=== PATIENT | female | born 1975 | race Caucasian/White ===

== ENCOUNTER 2017-07-17 16:03 | Emergency (ER) | payer OTHER ==
[2017-07-17 16:27] VITALS: BP 167/99; PULSE 99; RESP 18; TEMP 97.9
--- NOTE | 2017-07-17 16:32 | XR ---
EXAMINATION TYPE: XR ankle complete LT DATE OF EXAM: 07/17/2017 CLINICAL HISTORY: Pain from fall injury. TECHNIQUE: Frontal, lateral and oblique images of the left ankle are obtained. COMPARISON: None. FINDINGS: There is mild to moderate soft tissue swelling over the lateral malleolus. There are 2 tin y curvilinear fragment suspicious for avulsion type fractures. Medial malleolus intact. Ankle mortise symmetry is preserved. IMPRESSION: There are acute avulsion type fractures with associated soft tissue swelling from the la teral malleolus. (Initial encounter close type post traumatic fracture)
--- NOTE | 2017-07-17 16:41 | ED ---
General Adult HPI - General Chief complaint: Extremity Injury, Lower Stated complaint: Fall-Ankle Injury Time Seen by Provider: 07/17/17 16:11 Source: patient, RN notes reviewed Mode of arrival: ambulatory Limitations: no limitations - History of Present Illness Initial comments: 42-year-old female presents to the emergency room chief complaint of left ankle pain. Patient uses her ankle last night she continued pain and swelling to the ankle. She states that she can ambulate and move around she does have some discomfort with push pulling. Patient states there is no head injury or any other complaints at this time.Patient denies any recent fever, chills, shortness of breath, chest pain, back pain, abdominal pain, nausea vomiting, numbness or tingling, dysuria or hematuria, constipation or diarrhea, headaches or visual changes, or any other current symptoms. - Related Data Home Medications Medication Instructions Recorded Confirmed Losartan Potassium 50 mg PO DAILY 07/17/17 07/17/17 Allergies Allergy/AdvReac Type Severity Reaction Status Date / Time No Known Allergies Allergy Verified 07/17/17 16:33 Review of Systems ROS Statement: Those systems with pertinent positive or pertinent negative responses have been documented in the HPI. ROS Other: All systems not noted in ROS Statement are negative. Past Medical History Past Medical History: Hypertension History of Any Multi-Drug Resistant Organisms: None Reported Past Surgical History: No Surgical Hx Reported Past Psychological History: No Psychological Hx Reported Smoking Status: Current some day smoker Past Alcohol Use History: Occasional Past Drug Use History: None Reported General Exam - General Exam Comments Initial Comments: General: The patient is awake and alert, in no distress, and does not appear acutely ill. Neck: The neck is supple, there is no tenderness. Cardiovascular: There is a regular rate and rhythm. No murmur, rub or gallop is appreciated. Respiratory: Lungs are clear to auscultation, respirations are non-labored, breath sounds are equal. No wheezes, stridor, rales, or rhonchi. Musculoskeletal: Sensation intact with 2+ pulses. Left flexion. Frontal motion of left knee and left ankle. No proximal tib-fib tenderness. Tenderness medial malleolus process of the left ankle. Some swelling over the lateral malleolus. Full range of motion of left foot. Neurological: CN II-XII intact, There are no obvious motor or sensory deficits. Coordination appears grossly intact. Speech is normal. Skin: Skin is warm and dry and no rashes or lesions are noted. Psychiatric: Normal mood and affect. Limitations: no limitations Course Vital Signs 07/17/17 16:15 Temperature 97.9 F Pulse Rate 99 Respiratory 18 Rate Blood Pressure 167/99 O2 Sat by Pulse 100 Oximetry Procedures - Orthopedic Splinting/Casting Injury #1 Side: left Lower Extremity Injury Location: ankle Lower Extremity Immobilizer: stirrup splint (short leg) Medical Decision Making - Medical Decision Making 42-year-old female presents with what appears to be a left ankle avulsion fracture this time she was placed in splint. We discussed follow-up we discussed return parameters all the patient's questions. She stated that she understood and she is agreement this plan. All questions have been answered. She will be discharged. - Radiology Data Radiology results: report reviewed, image reviewed Disposition Clinical Impression: Avulsion fracture of left ankle Disposition: HOME SELF-CARE Condition: Stable Instructions: Ankle Fracture (ED) Additional Instructions: Please use medication as discussed. Please follow up with family doctor if symptoms have not improved over the next two days. Please return to the emergency room if your symptoms increase or worsen or for any other concerns. Referrals: Milagro Rodriguez MD [Primary Care Provider] - 1-2 days Herb Dennis MD [STAFF PHYSICIAN] - 1-2 days Time of Disposition: 16:40
== END 2017-07-17 16:55 | disposition home or self-care (01) ==
LOC: EC 16:03
DX: S82.892A Other fracture of left lower leg, initial encounter for closed fracture (principal); I10 Essential (primary) hypertension; F17.200 Nicotine dependence, unspecified, uncomplicated; Z79.899 Other long term (current) drug therapy; X50.1XXA Overexertion from prolonged static or awkward postures, initial encounter; Y92.89 Other specified places as the place of occurrence of the external cause
CPT/HCPCS: 29515; 99283

== ENCOUNTER 2018-08-06 21:19 | Emergency (ER) | payer OTHER, BC ==
[2018-08-06 21:43] VITALS: TEMP 98.1
[2018-08-06] MEDS ORDERED: KETOROLAC 30 MG/ML 1 ML VIAL IM STA (22:48)
--- NOTE | 2018-08-07 00:12 | XR ---
EXAMINATION TYPE: XR cervical spine comp DATE OF EXAM: 08/06/2018 COMPARISON: NONE HISTORY: Neck pain TECHNIQUE: 6 views FINDINGS: Cervical vertebra have normal spacing and alignment. Posterior elements are intact. Skull b ase appears intact. Atlantoaxial facet joint is normal. There are no cervical ribs. IMPRESSION: Negative cervical spine exam.
--- NOTE | 2018-08-07 00:12 | XR ---
EXAMINATION TYPE: XR wrist complete RT DATE OF EXAM: 08/06/2018 COMPARISON: NONE HISTORY: Pain and stiffness TECHNIQUE: 4 views FINDINGS: I see no fracture nor dislocation. Joint spaces are normal. Carpal bones appear intact. Met acarpals are intact. IMPRESSION: Negative right wrist exam.
--- NOTE | 2018-08-07 00:13 | XR ---
EXAMINATION TYPE: XR chest 2V DATE OF EXAM: 08/06/2018 COMPARISON: NONE HISTORY: Pain and stiffness TECHNIQUE: Frontal and lateral views of the chest are obtained. FINDINGS: Heart and mediastinum are normal. Lungs are clear. Diaphragm is normal. Bony thorax appear s normal. IMPRESSION: Normal chest.
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
[2018-08-07 01:13] VITALS: BP 130/91; PULSE 95; RESP 16
== END 2018-08-07 00:58 | disposition home or self-care (01) ==
LOC: EC 21:19
DX: S16.1XXA Strain of muscle, fascia and tendon at neck level, initial encounter (principal); M25.531 Pain in right wrist; R51 Headache; I10 Essential (primary) hypertension; F17.200 Nicotine dependence, unspecified, uncomplicated; Z79.899 Other long term (current) drug therapy; V43.52XA Car driver injured in collision with other type car in traffic accident, initial encounter; Y92.410 Unspecified street and highway as the place of occurrence of the external cause; Z53.29 Procedure and treatment not carried out because of patient's decision for other reasons
CPT/HCPCS: 71046; 72050; 99284

== ENCOUNTER → 2023-05-06 | Outpatient (CLI) | payer BC ==
--- NOTE | 2023-05-06 11:47 | MM ---
Reason for Exam: Screening (asymptomatic). Baseline mammogram. Patient History: Menarche at age 12. First Full-Term at age 26. Last menstrual period: 05/03/2023 Risk Values: Ivania 5 year model risk: 0.7%. NCI Lifetime model risk: 7.2%. Prior Study Comparison: Patient's first Mammogram. Tissue Density: The breast tissue is heterogeneously dense. This may lower the sensitivity of mammography. Findings: Analyzed By CAD. * Right breast asymmetry middle depth 6.7 cm from the nipple measuring 8 mm on the right cc view. * Additional right breast posterior nipple line slightly lateral focal asymmetry 3.8 cm from nipple measuring 9 mm. * Focal asymmetry left breast 8.2 cm from the nipple lateral aspect on CC view measuring up to 13 mm and 8.27 m from the nipple. * Dense fibroglandular tissue left upper outer quadrant underlying mass not excluded. Overall Assessment: Incomplete: need additional imaging evaluation, BI-RAD 0 Management: Diagnostic Mammogram of both breasts. Diagnostic Breast Ultrasound of the left breast. [facility] will attempt to contact patient to return for supplemental views and ultrasound if indicated. Patient should continue monthly self-breast exams. A clinical breast exam by your physician is recommended on an annual basis. This exam should not preclude additional follow-up of suspicious palpable abnormalities. Note on Ivania scores and lifetime risk: 1. A Ivania score greater than 3% is considered moderate risk. If this is the case, consider specialist referral to assess eligibility for a risk reducing agent. 2. If overall lifetime risk for the development of breast cancer is 20% or higher, the patient may qualify for future screening with alternating mammogram and breast MRI. Electronically signed and approved by: Dante Govea DO
== END | disposition home or self-care (01) ==
LOC: RADMAMWWP 08:11
PROVIDERS: ATTEND Internal Medicine
DX: Z12.31 Encounter for screening mammogram for malignant neoplasm of breast (principal)
CPT/HCPCS: 77063; 77067

== ENCOUNTER → 2023-05-26 | Outpatient (CLI) | payer BC ==
--- NOTE | 2023-05-26 09:58 | USB ---
Reason for Exam: Additional evaluation requested from abnormal screening. Patient History: Menarche at age 12. First Full-Term at age 26. Risk Values: Ivania 5 year model risk: 0.7%. NCI Lifetime model risk: 7.2%. Technique: Method: Targeted. Prior Study Comparison: 05/06/2023 Bilateral MG 3D screening mammo w/cad, [facility]. Findings: The upper outer quadrant of the left breast, the axilla of the left breast and the retroareolar of the left breast were scanned. There are several hypoechoic structures with good through transmission and posterior wall enhancement compatible with small cysts. This would include a 0.9 x 0.4 x 0.7 cm area 1:00 position 8 cm simple, a 0.6 x 0.5 x 0.9 cm area 2:00 position 8 cm from the nipple. There is a 0.4 x 0.3 x 0.4 cm area 4:00 position 8 cm nipple.. Overall Assessment: Benign, BI-RAD 2 Management: Diagnostic Mammogram of both breasts in 6 months. A clinical breast exam by your physician is recommended on an annual basis and results should be correlated with mammographic findings. This exam should not preclude additional follow-up of suspicious palpable abnormalities. Results were given to the patient verbally at the time of exam. Electronically signed and approved by: Bari Dumont D.O. Radiologis
--- NOTE | 2023-05-26 09:59 | MM ---
Reason for Exam: Additional evaluation requested from abnormal screening. Last screening mammogram was performed less than 1 month ago. Patient History: Menarche at age 12. First Full-Term at age 26. Last menstrual period: 04/08/2023 Risk Values: Ivania 5 year model risk: 0.7%. NCI Lifetime model risk: 7.2%. Prior Study Comparison: 05/06/2023 Bilateral MG 3D screening mammo w/cad, [facility]. Tissue Density: The breast tissue is heterogeneously dense. This may lower the sensitivity of mammography. Findings: Analyzed By CAD. Pattern appears stable. There is a partially circumscribed oval density within the outer aspect left breast measuring 9 mm transverse located 7 mm located 7.5 cm from the nipple. Focal asymmetries are present. Some stable appearing distortion may be within the right breast. No suspicious groups of microcalcifications, spiculated or lobular masses, architectural distortion or other secondary signs of malignancy are mammographically apparent. Overall Assessment: Incomplete: need additional imaging evaluation, BI-RAD 0 Management: Diagnostic Breast Ultrasound of the left breast. A negative mammogram report should not preclude additional follow up of suspicious palpable abnormalities. Patient should continue monthly self breast exam. A clinical breast exam by your physician is recommended on an annual basis and results should be correlated with mammographic findings. Electronically signed and approved by: Bari Dumont D.O. Radiologis
== END | disposition home or self-care (01) ==
LOC: RADMAMWWP 08:15
PROVIDERS: ATTEND Internal Medicine
DX: R92.332 Mammographic heterogeneous density, left breast (principal)
CPT/HCPCS: 77062; 77066